=== PATIENT | male | born 1960 | race Caucasian/White ===

== ENCOUNTER 2016-11-30 14:56 | Emergency (ER) | payer SELFPAY ==
[~2016-11-30] VITALS: Ht 175.3 cm; Wt 79.2 kg
[2016-11-30 15:09] VITALS: BP 119/76
== END 2016-11-30 15:53 | disposition left against medical advice (07) ==
LOC: ED 15:45
DX: F22 Delusional disorders (principal)
CPT/HCPCS: 99281

== ENCOUNTER 2016-12-14 14:20 | Emergency (ER) | payer SELFPAY ==
[2016-12-14 14:23] VITALS: BP 135/83
== END 2016-12-14 15:14 | disposition left against medical advice (07) ==
LOC: ED 15:08
DX: L84 Corns and callosities (principal)
CPT/HCPCS: 99281

== ENCOUNTER 2020-11-05 00:57 | Emergency (ER) | payer SELFPAY ==
[~2020-11-05] VITALS: Ht 175.3 cm; Wt 76.0 kg
[2020-11-05 00:58] VITALS: BP 116/86
--- NOTE | 2020-11-05 02:29 | NUR ---
PT. TO ROOM FROM LOBBY AT THIS TIME. AMBULATORY WITH STEADY GAIT.
--- NOTE | 2020-11-05 03:12 | NUR ---
TASK RN: ERP AT BEDSIDE FOR PT EVAL. PT UNCOOPERATIVE AND CONTINUALLY SCREAMING "FUCK YOU, MY WRIST IS FUCKING BROKEN. FUCK YOU." ATTEMPT TO EDUCATE PT ON PROPER COMMUNICATION WITH STAFF. PT UNWILLING TO COOPERATE AND CONTINUES TO YELL AT PROVIDER AND THIS RN. SECURITY AT BEDSIDE TO ESCORT PT OUT OF DEPARTMENT AT THIS TIME.
--- NOTE | 2020-11-05 03:18 | NUR ---
PT AMBULATORY UPON D/C WITH SECURITY. PT REFUSING TO COOPERATE WITH STAFF AND CONTINUES TO YELL "FUCK YOU, FUCK YOU".
== END 2020-11-05 03:20 | disposition home or self-care (01) ==
LOC: ED 02:59
DX: M25.531 Pain in right wrist (principal)
CPT/HCPCS: 99281